=== PATIENT | male | born 1975 | race Caucasian/White ===

== ENCOUNTER 2018-11-10 11:26 | Inpatient (IN) | payer OTHER, MEDICAID ==
[~2018-11-10] VITALS: Ht 177.8 cm; Wt 90.7 kg
[2018-11-10] VITALS (18 sets, daily range): BP systolic 93–133
[2018-11-10] MEDS ORDERED: LEVOFLOXACIN 500 MG/D5W 100 ML IV ONE (11:45)
[2018-11-10] MEDS ORDERED: ALBUTEROL SULFATE 0.083% 2.5 MG/3 ML VIAL.NEB INH ONE ×3 (11:45→14:00)
[2018-11-10 12:30] LABS: BASOPHILS # (AUTO) 0.1 K/uL (0.0-0.2); BASOPHILS % (AUTO) 1.6 % (0.0-2.0); EOSINOPHILS % (AUTO) 0.2 % (0.0-4.0); HEMOGLOBIN 14.5 g/dL (14.0-18.0); LYMPHOCYTES # (AUTO) 1.5 K/uL (1.0-5.5); LYMPHOCYTES % (AUTO) 18.4 % (20.5-51.5); MEAN CORPUSCULAR HEMOGLOBIN 32 pg (27-31); MEAN CORPUSCULAR HGB CONC 35 % (32-36); MEAN CORPUSCULAR VOLUME 93 fL (79.0-98.0); MONOCYTES # (AUTO) 0.6 K/uL (0.0-1.0); MONOCYTES % (AUTO) 7.7 % (1.7-9.3); NEUTROPHILS # (AUTO) 6.1 K/uL (1.8-7.7); NEUTROPHILS % (AUTO) 72.1 % (40.0-70.0); PLATELET COUNT (AUTO) 175 K/uL (130-430); RED BLOOD CELL COUNT(AUTO) 4.53 MIL/uL (4.2-6.2); RED CELL DISTRIBUTION WIDTH 13.5 % (9.0-15.0); WHITE BLOOD COUNT (AUTO) 8.3 K/uL (4.8-10.8)
[2018-11-10] MEDS ORDERED: ALBUTEROL SULFATE 0.083% 2.5 MG/3 ML VIAL.NEB INH SCH (13:45)
[2018-11-10] MEDS ORDERED: IPRATROPIUM BROM 0.5 MG/2.5 ML VIAL.NEB (ATROVENT) INH PRN ×2 (13:45→16:00)
[2018-11-10] MEDS ORDERED: SODIUM CL 3% FOR INHALATION 15 ML VIAL.NEB INH ONE (13:45)
[2018-11-10] MEDS ORDERED: IPRATROPIUM BROM 0.5 MG/2.5 ML VIAL.NEB (ATROVENT) INH ONE ×2 (13:45→14:00)
[2018-11-10] MEDS ORDERED: IPRATROPIUM BROM 0.5 MG/2.5 ML VIAL.NEB (ATROVENT) INH SCH (13:45)
[2018-11-10] MEDS ORDERED: ALBUTEROL SULFATE 0.083% 2.5 MG/3 ML VIAL.NEB INH PRN ×2 (13:45→16:00)
[2018-11-10 14:22] LABS: ALBUMIN 3.1 g/dL (3.4-4.8); CALCIUM 8.6 mg/dL (8.4-11.0); CREATININE 0.58 mg/dL (0.55-1.30); TOTAL BILIRUBIN 0.8 mg/dL (0.0-1.0)
[2018-11-10] MEDS ORDERED: LORazepam 2 MG/ML VIAL (FOR ER USE) ONE ×2 (14:22→15:01)
[2018-11-10 14:45] LABS: INR 1.1 (0.80-1.20); PROTHROMBIN TIME 10.8 SECS (9.5-12.5)
[2018-11-10] MEDS ORDERED: IPRA4AER INH (14:59)
[2018-11-10] MEDS ORDERED: [UNRECOGNIZED DRUG - CODE] GT (14:59)
[2018-11-10] MEDS ORDERED: PRO40 GT (14:59)
[2018-11-10] MEDS ORDERED: DEPL250/5 GT (14:59)
[2018-11-10] MEDS ORDERED: FER300L GT (14:59)
[2018-11-10] MEDS ORDERED: GUAI100S14 GT (14:59)
[2018-11-10] MEDS ORDERED: LACT10SO7 GT (14:59)
[2018-11-10] MEDS ORDERED: NYSTATIN SUSPENSION (14:59)
[2018-11-10] MEDS ORDERED: APIX5TAB4 GT (14:59)
[2018-11-10] MEDS ORDERED: FAMO-132 GT (14:59)
[2018-11-10] MEDS ORDERED: MUC20RT INH (14:59)
[2018-11-10] MEDS ORDERED: BISA10SU61 RC (14:59)
[2018-11-10] MEDS ORDERED: LEVE250T2 GT (14:59)
[2018-11-10] MEDS ORDERED: CARB100T GT (14:59)
[2018-11-10] MEDS ORDERED: POLY17PO4 GT (14:59)
[2018-11-10] MEDS ORDERED: ACETAMINOPHEN 650 MG/20.3 ML UDC PO ONE (15:00)
[2018-11-10] MEDS ORDERED: LORazepam 2 MG/ML VIAL (FOR ER USE) IVP ONE ×2 (15:00)
[2018-11-10] MEDS ORDERED: ACETAMINOPHEN 500 MG TABLET ONE (15:08)
[2018-11-10] MEDS ORDERED: LORazepam 2 MG/ML VIAL ONE (15:25)
[2018-11-10 15:29] LABS: BILIRUBIN,URINE NEGATIVE (NEGATIVE); BLOOD, URINE 1+ (NEGATIVE); CLARITY/URINE CLEAR (CLEAR); COLOR,URINE YELLOW (YELLOW); GLUCOSE,URINE NEGATIVE (NEGATIVE); KETONES,URINE NEGATIVE (NEGATIVE); LEUKOCYTE ESTERASE ,URINE NEGATIVE (NEGATIVE); NITRITE, URINE NEGATIVE (NEGATIVE); PH,URINE 6.5 (5.0-8.0); PROTEIN URINE NEGATIVE (NEGATIVE)
[2018-11-10 15:34] LABS: BACTERIA,URINE FEW /HPF (None Seen); RBC,URINE 0-3 /HPF (0-3); WBC,URINE 0-3 /HPF (0-3)
[2018-11-10] MEDS ORDERED: MIDAZOLAM HCL 5 MG/5 ML VIAL ONE (15:34)
[2018-11-10 15:35] LABS: URINE AMORPHOUS URATE 1+ /HPF (None Seen)
[2018-11-10] MEDS ORDERED: PROPOFOL DRIP 100 ML IV ONE (15:35)
[2018-11-10] MEDS ORDERED: LORazepam 2 MG/ML VIAL IVP PRN (16:00)
[2018-11-10] MEDS ORDERED: MORPHINE 4 MG/ML INJ. SYRINGE IVP PRN (16:00)
[2018-11-10] MEDS: LORazepam 2 MG/ML VIAL IVP PRN (16:15)
[2018-11-10] MEDS ORDERED: COMMUNICATION ORDER XX ONE (16:30)
[2018-11-10 16:35] LABS: CARBAMAZEPINE (TEGRETOL) 5 ug/mL (4-12); VALPROIC ACID 16 ug/mL (50-100)
[2018-11-10 16:38] LABS: INR 1.1 (0.80-1.20)
[2018-11-10] MEDS ORDERED: ETOMIDATE 20 MG/ 10 ML VIAL (AMIDATE) IVP ONE (17:10)
[2018-11-10] MEDS: PIPERACILLIN/TAZO 3.375/DEX-IS 50 ML IV SCH ×2 (18:42→23:01)
[2018-11-10] MEDS: NACL 0.9% 1,000 ML IV SCH (18:42)
[2018-11-10] MEDS: ALBUTEROL SULFATE 0.083% 2.5 MG/3 ML VIAL.NEB INH SCH (20:19)
[2018-11-10] MEDS: IPRATROPIUM BROM 0.5 MG/2.5 ML VIAL.NEB (ATROVENT) INH SCH (20:19)
[2018-11-10] MEDS: VALPROIC ACID ORAL SYRUP 250 MG/5 ML UDC GT SCH (20:30)
[2018-11-10] MEDS: levETIRAcetam 500 MG TABLET GT SCH (20:30)
[2018-11-10] MEDS: PROPOFOL DRIP 100 ML IV PRN (20:36)
[2018-11-10] MEDS ORDERED: levETIRAcetam 500 MG TABLET GT SCH (21:00)
[2018-11-11] VITALS (34 sets, daily range): BP systolic 87–114
[2018-11-11] MEDS: NACL 0.9% 1,000 ML IV SCH ×3 (00:52→22:34)
[2018-11-11] MEDS: IPRATROPIUM BROM 0.5 MG/2.5 ML VIAL.NEB (ATROVENT) INH SCH ×3 (01:19→19:56)
[2018-11-11] MEDS: ALBUTEROL SULFATE 0.083% 2.5 MG/3 ML VIAL.NEB INH SCH ×3 (01:20→19:57)
[2018-11-11] MEDS: PROPOFOL DRIP 100 ML IV PRN ×3 (02:52→17:04)
[2018-11-11] MEDS: PIPERACILLIN/TAZO 3.375/DEX-IS 50 ML IV SCH ×4 (05:08→23:28)
[2018-11-11 06:27] LABS: ALBUMIN 2.5 g/dL (3.4-4.8); CALCIUM 8.4 mg/dL (8.4-11.0); CREATININE 0.43 mg/dL (0.55-1.30); POTASSIUM 3.1 mmol/L (3.5-5.1); TOTAL BILIRUBIN 1.2 mg/dL (0.0-1.0)
[2018-11-11 07:04] LABS: BASOPHILS % (AUTO) 0.1 % (0.0-2.0); EOSINOPHILS % (AUTO) 0.3 % (0.0-4.0); HEMATOCRIT 39.9 % (36-54); HEMOGLOBIN 13.5 g/dL (14.0-18.0); LYMPHOCYTES # (AUTO) 1.3 K/uL (1.0-5.5); LYMPHOCYTES % (AUTO) 14.2 % (20.5-51.5); MEAN CORPUSCULAR HEMOGLOBIN 32 pg (27-31); MEAN CORPUSCULAR HGB CONC 34 % (32-36); MEAN CORPUSCULAR VOLUME 94 fL (79.0-98.0); MONOCYTES # (AUTO) 0.9 K/uL (0.0-1.0); MONOCYTES % (AUTO) 9.5 % (1.7-9.3); NEUTROPHILS # (AUTO) 7.1 K/uL (1.8-7.7); NEUTROPHILS % (AUTO) 75.9 % (40.0-70.0); PLATELET COUNT (AUTO) 173 K/uL (130-430); RED BLOOD CELL COUNT(AUTO) 4.22 MIL/uL (4.2-6.2); RED CELL DISTRIBUTION WIDTH 13.4 % (9.0-15.0); WHITE BLOOD COUNT (AUTO) 9.3 K/uL (4.8-10.8)
[2018-11-11] MEDS: LORazepam 2 MG/ML VIAL IVP PRN ×3 (08:11→17:04)
[2018-11-11] MEDS: PANTOPRAZOLE SODIUM 40 MG TAB GT SCH (09:19)
[2018-11-11] MEDS: levETIRAcetam 500 MG TABLET GT SCH ×2 (09:21→20:54)
[2018-11-11] MEDS: VALPROIC ACID ORAL SYRUP 250 MG/5 ML UDC GT SCH ×2 (09:24→20:53)
[2018-11-11] MEDS ORDERED: POTASSIUM CHLORIDE 20 MEQ/PKT PACKET GT ONE (11:00)
[2018-11-11] MEDS ORDERED: NACL 0.9% 1,000 ML IV ONE (11:45)
[2018-11-11] MEDS ORDERED: NOREPINEPHRINE 4 MG/4 ML VIAL IV ONE (12:40)
[2018-11-11] MEDS: NOREPINEPHRINE BITARTRATE 4 MG in NS 246 ML IV PRN ×2 (12:43→23:37)
[2018-11-11] MEDS: APIXABAN 2.5 MG TABLET PO SCH (20:55)
[2018-11-12] VITALS (31 sets, daily range): BP systolic 95–128
[2018-11-12] MEDS: PROPOFOL DRIP 100 ML IV PRN ×2 (00:54→08:37)
[2018-11-12] MEDS: ALBUTEROL SULFATE 0.083% 2.5 MG/3 ML VIAL.NEB INH SCH ×4 (02:30→19:45)
[2018-11-12] MEDS: IPRATROPIUM BROM 0.5 MG/2.5 ML VIAL.NEB (ATROVENT) INH SCH ×4 (02:30→19:44)
[2018-11-12] MEDS: PIPERACILLIN/TAZO 3.375/DEX-IS 50 ML IV SCH ×3 (05:24→18:16)
[2018-11-12 06:58] LABS: CALCIUM 8.4 mg/dL (8.4-11.0); CREATININE 0.39 mg/dL (0.55-1.30); POTASSIUM 3.3 mmol/L (3.5-5.1)
[2018-11-12 07:05] LABS: ALBUMIN 2.2 g/dL (3.4-4.8); TOTAL BILIRUBIN 0.8 mg/dL (0.0-1.0)
[2018-11-12 07:40] LABS: EOSINOPHILS % (AUTO) 1.2 % (0.0-4.0); HEMOGLOBIN 12.6 g/dL (14.0-18.0); LYMPHOCYTES % (AUTO) 22.3 % (20.5-51.5); MEAN CORPUSCULAR HEMOGLOBIN 31 pg (27-31); MEAN CORPUSCULAR HGB CONC 32 % (32-36); MEAN CORPUSCULAR VOLUME 96 fL (79.0-98.0); MONOCYTES % (AUTO) 8.8 % (1.7-9.3); NEUTROPHILS % (AUTO) 67.4 % (40.0-70.0); PLATELET COUNT (AUTO) 211 K/uL (130-430); RED BLOOD CELL COUNT(AUTO) 4.05 MIL/uL (4.2-6.2); RED CELL DISTRIBUTION WIDTH 13.1 % (9.0-15.0)
[2018-11-12 07:41] LABS: BASOPHILS % (AUTO) 0.3 % (0.0-2.0); EOSINOPHILS # (AUTO) 0.1 K/uL (0.0-0.4); LYMPHOCYTES # (AUTO) 1.6 K/uL (1.0-5.5); MONOCYTES # (AUTO) 0.6 K/uL (0.0-1.0); NEUTROPHILS # (AUTO) 4.7 K/uL (1.8-7.7)
[2018-11-12] MEDS: PANTOPRAZOLE SODIUM 40 MG TAB GT SCH (08:24)
[2018-11-12] MEDS: levETIRAcetam 500 MG TABLET GT SCH ×2 (08:24→21:00)
[2018-11-12] MEDS: VALPROIC ACID ORAL SYRUP 250 MG/5 ML UDC GT SCH ×2 (08:26→20:59)
[2018-11-12] MEDS: APIXABAN 2.5 MG TABLET PO SCH ×2 (08:27→21:01)
[2018-11-12] MEDS: NACL 0.9% 1,000 ML IV SCH (08:39)
[2018-11-12] MEDS ORDERED: NOREPINEPHRINE 4 MG/4 ML VIAL IV ONE (08:44)
[2018-11-12] MEDS: NOREPINEPHRINE BITARTRATE 4 MG in NS 246 ML IV PRN (08:50)
[2018-11-12] MEDS: VANCOMYCIN HCL 1,000 MG in NS 250 ML IV SCH ×2 (08:58→16:06)
[2018-11-12] MEDS ORDERED: VANCOMYCIN HCL 1 GM/NS PREMIX 250 ML IV SCH (09:00)
[2018-11-12] MEDS ORDERED: POTASSIUM CHLORIDE 20 MEQ/PKT PACKET PO ONE (11:00)
[2018-11-12] MEDS: 0.45% NACL 1,000 ML IV SCH (11:47)
[2018-11-13] VITALS (29 sets, daily range): BP systolic 86–140
[2018-11-13] MEDS: PIPERACILLIN/TAZO 3.375/DEX-IS 50 ML IV SCH ×4 (00:05→17:10)
[2018-11-13] MEDS: VANCOMYCIN HCL 1,000 MG in NS 250 ML IV SCH ×2 (00:47→08:14)
[2018-11-13] MEDS: IPRATROPIUM BROM 0.5 MG/2.5 ML VIAL.NEB (ATROVENT) INH SCH ×4 (00:51→19:30)
[2018-11-13] MEDS: ALBUTEROL SULFATE 0.083% 2.5 MG/3 ML VIAL.NEB INH SCH ×4 (00:52→19:30)
[2018-11-13] MEDS: 0.45% NACL 1,000 ML IV SCH ×2 (05:35→20:20)
[2018-11-13] MEDS: NOREPINEPHRINE BITARTRATE 4 MG in NS 246 ML IV PRN (05:36)
[2018-11-13 07:11] LABS: CALCIUM 8.3 mg/dL (8.4-11.0); CREATININE 0.35 mg/dL (0.55-1.30); POTASSIUM 3.5 mmol/L (3.5-5.1)
[2018-11-13 07:18] LABS: ALBUMIN 2.1 g/dL (3.4-4.8); TOTAL BILIRUBIN 0.5 mg/dL (0.0-1.0)
[2018-11-13 08:10] LABS: BASOPHILS % (AUTO) 0.1 % (0.0-2.0); EOSINOPHILS # (AUTO) 0.1 K/uL (0.0-0.4); EOSINOPHILS % (AUTO) 2.6 % (0.0-4.0); HEMATOCRIT 35.3 % (36-54); HEMOGLOBIN 11.9 g/dL (14.0-18.0); LYMPHOCYTES # (AUTO) 1.3 K/uL (1.0-5.5); LYMPHOCYTES % (AUTO) 27.7 % (20.5-51.5); MEAN CORPUSCULAR HEMOGLOBIN 33 pg (27-31); MEAN CORPUSCULAR HGB CONC 34 % (32-36); MEAN CORPUSCULAR VOLUME 96 fL (79.0-98.0); MONOCYTES # (AUTO) 0.4 K/uL (0.0-1.0); MONOCYTES % (AUTO) 9.1 % (1.7-9.3); NEUTROPHILS # (AUTO) 2.9 K/uL (1.8-7.7); NEUTROPHILS % (AUTO) 60.5 % (40.0-70.0); PLATELET COUNT (AUTO) 159 K/uL (130-430); RED BLOOD CELL COUNT(AUTO) 3.68 MIL/uL (4.2-6.2); RED CELL DISTRIBUTION WIDTH 12.9 % (9.0-15.0); WHITE BLOOD COUNT (AUTO) 4.7 K/uL (4.8-10.8)
[2018-11-13] MEDS: PANTOPRAZOLE SODIUM 40 MG TAB GT SCH (08:14)
[2018-11-13] MEDS: APIXABAN 2.5 MG TABLET PO SCH ×2 (08:15→20:25)
[2018-11-13] MEDS: levETIRAcetam 500 MG TABLET GT SCH ×2 (08:16→20:25)
[2018-11-13] MEDS: VALPROIC ACID ORAL SYRUP 250 MG/5 ML UDC GT SCH ×2 (08:16→20:24)
[2018-11-13] MEDS: VANCOMYCIN HCL 1,500 MG in NS 250 ML IV SCH (17:02)
[2018-11-14] VITALS (34 sets, daily range): BP systolic 94–138
[2018-11-14] MEDS: PIPERACILLIN/TAZO 3.375/DEX-IS 50 ML IV SCH ×5 (00:42→23:29)
[2018-11-14] MEDS: IPRATROPIUM BROM 0.5 MG/2.5 ML VIAL.NEB (ATROVENT) INH SCH ×4 (01:15→19:37)
[2018-11-14] MEDS: ALBUTEROL SULFATE 0.083% 2.5 MG/3 ML VIAL.NEB INH SCH ×4 (01:15→19:37)
[2018-11-14] MEDS: VANCOMYCIN HCL 1,500 MG in NS 250 ML IV SCH ×3 (01:19→16:37)
[2018-11-14 07:05] LABS: BASOPHILS % (AUTO) 0.1 % (0.0-2.0); EOSINOPHILS # (AUTO) 0.2 K/uL (0.0-0.4); EOSINOPHILS % (AUTO) 3.2 % (0.0-4.0); HEMATOCRIT 33.4 % (36-54); HEMOGLOBIN 11.3 g/dL (14.0-18.0); LYMPHOCYTES # (AUTO) 1.4 K/uL (1.0-5.5); MEAN CORPUSCULAR HEMOGLOBIN 33 pg (27-31); MEAN CORPUSCULAR HGB CONC 34 % (32-36); MEAN CORPUSCULAR VOLUME 97 fL (79.0-98.0); MONOCYTES # (AUTO) 0.5 K/uL (0.0-1.0); MONOCYTES % (AUTO) 10.3 % (1.7-9.3); NEUTROPHILS # (AUTO) 2.9 K/uL (1.8-7.7); NEUTROPHILS % (AUTO) 57.4 % (40.0-70.0); PLATELET COUNT (AUTO) 135 K/uL (130-430); RED BLOOD CELL COUNT(AUTO) 3.46 MIL/uL (4.2-6.2); RED CELL DISTRIBUTION WIDTH 13.3 % (9.0-15.0)
[2018-11-14 07:08] LABS: ALBUMIN 2.1 g/dL (3.4-4.8); CALCIUM 8.2 mg/dL (8.4-11.0); CREATININE 0.34 mg/dL (0.55-1.30); POTASSIUM 3.5 mmol/L (3.5-5.1); TOTAL BILIRUBIN 0.5 mg/dL (0.0-1.0)
[2018-11-14] MEDS: APIXABAN 2.5 MG TABLET PO SCH ×2 (08:12→20:25)
[2018-11-14] MEDS: PANTOPRAZOLE SODIUM 40 MG TAB GT SCH (08:13)
[2018-11-14] MEDS: levETIRAcetam 500 MG TABLET GT SCH ×2 (08:13→20:24)
[2018-11-14] MEDS: VALPROIC ACID ORAL SYRUP 250 MG/5 ML UDC GT SCH ×2 (08:14→20:23)
[2018-11-14] MEDS ORDERED: FUROSEMIDE 20 MG/2 ML VIAL IVP ONE (10:30)
[2018-11-14] MEDS: 0.45% NACL 1,000 ML IV SCH (19:58)
[2018-11-14] MEDS: MIDODRINE HCL 5 MG TABLET (PROAMATINE) GT SCH (20:24)
[2018-11-15] VITALS (36 sets, daily range): BP systolic 91–117
[2018-11-15] MEDS: VANCOMYCIN HCL 1,500 MG in NS 250 ML IV SCH ×3 (00:16→18:00)
[2018-11-15] MEDS: IPRATROPIUM BROM 0.5 MG/2.5 ML VIAL.NEB (ATROVENT) INH SCH ×4 (00:49→19:40)
[2018-11-15] MEDS: ALBUTEROL SULFATE 0.083% 2.5 MG/3 ML VIAL.NEB INH SCH ×4 (00:49→19:41)
[2018-11-15] MEDS ORDERED: NOREPINEPHRINE 4 MG/4 ML VIAL IV ONE (05:04)
[2018-11-15] MEDS: NOREPINEPHRINE BITARTRATE 4 MG in NS 246 ML IV PRN (05:09)
[2018-11-15] MEDS: PIPERACILLIN/TAZO 3.375/DEX-IS 50 ML IV SCH ×4 (05:21→23:45)
[2018-11-15 06:47] LABS: CALCIUM 8.6 mg/dL (8.4-11.0); CREATININE 0.28 mg/dL (0.55-1.30); POTASSIUM 3.5 mmol/L (3.5-5.1)
[2018-11-15] MEDS: PANTOPRAZOLE SODIUM 40 MG TAB GT SCH (09:19)
[2018-11-15] MEDS: APIXABAN 2.5 MG TABLET PO SCH ×2 (09:20→21:19)
[2018-11-15] MEDS: levETIRAcetam 500 MG TABLET GT SCH ×2 (09:20→21:18)
[2018-11-15] MEDS: VALPROIC ACID ORAL SYRUP 250 MG/5 ML UDC GT SCH ×2 (09:21→21:21)
[2018-11-15] MEDS: MIDODRINE HCL 5 MG TABLET (PROAMATINE) GT SCH ×2 (09:21→21:24)
[2018-11-15] MEDS: 0.45% NACL 1,000 ML IV SCH (23:47)
[2018-11-16] VITALS (33 sets, daily range): BP systolic 85–133
[2018-11-16] MEDS: VANCOMYCIN HCL 1,500 MG in NS 250 ML IV SCH ×3 (00:58→17:09)
[2018-11-16] MEDS: IPRATROPIUM BROM 0.5 MG/2.5 ML VIAL.NEB (ATROVENT) INH SCH ×4 (01:07→19:58)
[2018-11-16] MEDS: ALBUTEROL SULFATE 0.083% 2.5 MG/3 ML VIAL.NEB INH SCH ×4 (01:07→19:58)
[2018-11-16] MEDS: PIPERACILLIN/TAZO 3.375/DEX-IS 50 ML IV SCH ×3 (05:59→17:07)
[2018-11-16 06:24] LABS: CALCIUM 8.6 mg/dL (8.4-11.0); CHLORIDE 104 mmol/L (98-107); CREATININE 0.27 mg/dL (0.55-1.30); GLUCOSE 95 mg/dL (70-99); SODIUM SERUM 138 mmol/L (136-145); UREA NITROGEN, BLOOD 11 mg/dL (8-21)
[2018-11-16 06:27] LABS: GFR AFRICAN AMERICAN 471 mL/min (>90)
[2018-11-16 06:28] LABS: ANION GAP < 3 (5-15)
[2018-11-16 06:57] LABS: BASOPHILS % (AUTO) 0.2 % (0.0-2.0); EOSINOPHILS # (AUTO) 0.2 K/uL (0.0-0.4); EOSINOPHILS % (AUTO) 4.3 % (0.0-4.0); HEMOGLOBIN 11.8 g/dL (14.0-18.0); LYMPHOCYTES # (AUTO) 1.5 K/uL (1.0-5.5); LYMPHOCYTES % (AUTO) 33.2 % (20.5-51.5); MEAN CORPUSCULAR HEMOGLOBIN 34 pg (27-31); MEAN CORPUSCULAR HGB CONC 35 % (32-36); MEAN CORPUSCULAR VOLUME 97 fL (79.0-98.0); MONOCYTES # (AUTO) 0.5 K/uL (0.0-1.0); MONOCYTES % (AUTO) 11.5 % (1.7-9.3); NEUTROPHILS # (AUTO) 2.4 K/uL (1.8-7.7); NEUTROPHILS % (AUTO) 50.8 % (40.0-70.0); PLATELET COUNT (AUTO) 148 K/uL (130-430); RED CELL DISTRIBUTION WIDTH 13.2 % (9.0-15.0); WHITE BLOOD COUNT (AUTO) 4.6 K/uL (4.8-10.8)
[2018-11-16] MEDS: levETIRAcetam 500 MG TABLET GT SCH ×2 (08:15→22:36)
[2018-11-16] MEDS: PANTOPRAZOLE SODIUM 40 MG TAB GT SCH (08:16)
[2018-11-16] MEDS: APIXABAN 2.5 MG TABLET PO SCH ×2 (08:17→22:37)
[2018-11-16] MEDS: MIDODRINE HCL 5 MG TABLET (PROAMATINE) GT SCH ×2 (08:18→22:35)
[2018-11-16] MEDS: VALPROIC ACID ORAL SYRUP 250 MG/5 ML UDC GT SCH ×2 (08:20→22:35)
[2018-11-17] VITALS (28 sets, daily range): BP systolic 97–120
[2018-11-17] MEDS: PIPERACILLIN/TAZO 3.375/DEX-IS 50 ML IV SCH ×3 (00:20→13:06)
[2018-11-17] MEDS: 0.45% NACL 1,000 ML IV SCH (00:51)
[2018-11-17] MEDS: VANCOMYCIN HCL 1,500 MG in NS 250 ML IV SCH ×3 (01:12→16:40)
[2018-11-17] MEDS: ALBUTEROL SULFATE 0.083% 2.5 MG/3 ML VIAL.NEB INH SCH ×4 (01:29→19:51)
[2018-11-17] MEDS: IPRATROPIUM BROM 0.5 MG/2.5 ML VIAL.NEB (ATROVENT) INH SCH ×4 (01:30→19:51)
[2018-11-17 06:35] LABS: CALCIUM 8.8 mg/dL (8.4-11.0); CREATININE 0.38 mg/dL (0.55-1.30); POTASSIUM 4.1 mmol/L (3.5-5.1)
[2018-11-17 06:39] LABS: BASOPHILS % (AUTO) 0.3 % (0.0-2.0); EOSINOPHILS # (AUTO) 0.3 K/uL (0.0-0.4); EOSINOPHILS % (AUTO) 4.3 % (0.0-4.0); HEMATOCRIT 34.1 % (36-54); HEMOGLOBIN 11.6 g/dL (14.0-18.0); LYMPHOCYTES # (AUTO) 1.9 K/uL (1.0-5.5); LYMPHOCYTES % (AUTO) 30.7 % (20.5-51.5); MEAN CORPUSCULAR HEMOGLOBIN 33 pg (27-31); MEAN CORPUSCULAR HGB CONC 34 % (32-36); MEAN CORPUSCULAR VOLUME 96 fL (79.0-98.0); MONOCYTES # (AUTO) 0.7 K/uL (0.0-1.0); NEUTROPHILS # (AUTO) 3.2 K/uL (1.8-7.7); NEUTROPHILS % (AUTO) 53.7 % (40.0-70.0); PLATELET COUNT (AUTO) 180 K/uL (130-430); RED BLOOD CELL COUNT(AUTO) 3.54 MIL/uL (4.2-6.2); RED CELL DISTRIBUTION WIDTH 13.1 % (9.0-15.0); WHITE BLOOD COUNT (AUTO) 6.1 K/uL (4.8-10.8)
[2018-11-17] MEDS: PANTOPRAZOLE SODIUM 40 MG TAB GT SCH (09:27)
[2018-11-17] MEDS: APIXABAN 2.5 MG TABLET PO SCH ×2 (09:27→21:41)
[2018-11-17] MEDS: levETIRAcetam 500 MG TABLET GT SCH ×2 (09:28→21:40)
[2018-11-17] MEDS: VALPROIC ACID ORAL SYRUP 250 MG/5 ML UDC GT SCH ×2 (09:28→21:40)
[2018-11-17] MEDS: MIDODRINE HCL 5 MG TABLET (PROAMATINE) GT SCH ×2 (09:29→21:40)
[2018-11-18] VITALS (23 sets, daily range): BP systolic 99–122
[2018-11-18] MEDS: IPRATROPIUM BROM 0.5 MG/2.5 ML VIAL.NEB (ATROVENT) INH SCH ×4 (01:20→20:16)
[2018-11-18] MEDS: ALBUTEROL SULFATE 0.083% 2.5 MG/3 ML VIAL.NEB INH SCH ×4 (01:20→20:16)
[2018-11-18] MEDS: VANCOMYCIN HCL 1,500 MG in NS 250 ML IV SCH ×3 (01:54→17:03)
[2018-11-18 06:07] LABS: CALCIUM 8.6 mg/dL (8.4-11.0); CREATININE 0.32 mg/dL (0.55-1.30); POTASSIUM 4.2 mmol/L (3.5-5.1)
[2018-11-18] MEDS: VALPROIC ACID ORAL SYRUP 250 MG/5 ML UDC GT SCH ×2 (08:38→21:24)
[2018-11-18] MEDS: MIDODRINE HCL 5 MG TABLET (PROAMATINE) GT SCH ×2 (08:38→21:23)
[2018-11-18] MEDS: LevETIRAcetam 500 MG/5 ML UDC ORAL LIQUID GT SCH ×2 (08:41→21:25)
[2018-11-18] MEDS: PANTOPRAZOLE SODIUM 40 MG TAB GT SCH (08:43)
[2018-11-18] MEDS: APIXABAN 2.5 MG TABLET PO SCH ×2 (08:44→21:00)
[2018-11-19] MEDS: VANCOMYCIN HCL 1,500 MG in NS 250 ML IV SCH ×3 (00:09→17:02)
[2018-11-19] MEDS: ALBUTEROL SULFATE 0.083% 2.5 MG/3 ML VIAL.NEB INH SCH ×4 (01:44→20:12)
[2018-11-19] MEDS: IPRATROPIUM BROM 0.5 MG/2.5 ML VIAL.NEB (ATROVENT) INH SCH ×4 (01:44→20:12)
[2018-11-19 08:00] VITALS: BP_SYST 113
[2018-11-19] MEDS: MIDODRINE HCL 5 MG TABLET (PROAMATINE) GT SCH ×2 (09:47→20:30)
[2018-11-19] MEDS: PANTOPRAZOLE SODIUM 40 MG TAB GT SCH (09:47)
[2018-11-19] MEDS: APIXABAN 2.5 MG TABLET PO SCH ×2 (09:47→20:39)
[2018-11-19] MEDS: VALPROIC ACID ORAL SYRUP 250 MG/5 ML UDC GT SCH ×2 (09:48→20:29)
[2018-11-19] MEDS: LevETIRAcetam 500 MG/5 ML UDC ORAL LIQUID GT SCH ×2 (09:49→20:30)
[2018-11-19 12:42] VITALS: BP_SYST 120
[2018-11-19 14:11] VITALS: BP_SYST 120
[2018-11-19 16:38] VITALS: BP_SYST 107
[2018-11-19 20:00] VITALS: BP_SYST 121
[2018-11-20 00:36] VITALS: BP_SYST 91
[2018-11-20] MEDS: VANCOMYCIN HCL 1,500 MG in NS 250 ML IV SCH (01:13)
[2018-11-20] MEDS: IPRATROPIUM BROM 0.5 MG/2.5 ML VIAL.NEB (ATROVENT) INH SCH ×4 (01:19→19:37)
[2018-11-20] MEDS: ALBUTEROL SULFATE 0.083% 2.5 MG/3 ML VIAL.NEB INH SCH ×4 (01:20→19:37)
[2018-11-20 07:17] LABS: EOSINOPHILS # (AUTO) 0.2 K/uL (0.0-0.4); EOSINOPHILS % (AUTO) 4.1 % (0.0-4.0); MEAN CORPUSCULAR HEMOGLOBIN 32 pg (27-31); MEAN CORPUSCULAR HGB CONC 33 % (32-36)
[2018-11-20 07:30] LABS: CALCIUM 8.7 mg/dL (8.4-11.0); CREATININE 0.33 mg/dL (0.55-1.30); POTASSIUM 3.9 mmol/L (3.5-5.1)
[2018-11-20 07:35] LABS: HEMATOCRIT 40.7 % (36-54); HEMOGLOBIN 13.4 g/dL (14.0-18.0); MEAN CORPUSCULAR VOLUME 97 fL (79.0-98.0); RED BLOOD CELL COUNT(AUTO) 4.21 MIL/uL (4.2-6.2); WHITE BLOOD COUNT (AUTO) 5.3 K/uL (4.8-10.8)
[2018-11-20 07:36] LABS: BASOPHILS % (AUTO) 0.3 % (0.0-2.0); LYMPHOCYTES # (AUTO) 2.1 K/uL (1.0-5.5); LYMPHOCYTES % (AUTO) 39.2 % (20.5-51.5); MONOCYTES # (AUTO) 0.6 K/uL (0.0-1.0); MONOCYTES % (AUTO) 11.4 % (1.7-9.3); NEUTROPHILS # (AUTO) 2.4 K/uL (1.8-7.7); PLATELET COUNT (AUTO) 294 K/uL (130-430); RED CELL DISTRIBUTION WIDTH 13.5 % (9.0-15.0)
[2018-11-20 07:42] LABS: ALBUMIN 2.5 g/dL (3.4-4.8); TOTAL BILIRUBIN 0.4 mg/dL (0.0-1.0)
[2018-11-20 08:11] VITALS: BP_SYST 105
[2018-11-20] MEDS: PANTOPRAZOLE SODIUM 40 MG TAB GT SCH (09:22)
[2018-11-20] MEDS: APIXABAN 2.5 MG TABLET PO SCH ×2 (09:22→21:54)
[2018-11-20] MEDS: LevETIRAcetam 500 MG/5 ML UDC ORAL LIQUID GT SCH ×2 (09:23→21:57)
[2018-11-20] MEDS: MIDODRINE HCL 5 MG TABLET (PROAMATINE) GT SCH ×2 (09:23→21:53)
[2018-11-20] MEDS: VALPROIC ACID ORAL SYRUP 250 MG/5 ML UDC GT SCH ×2 (09:25→21:58)
[2018-11-20 12:43] VITALS: BP_SYST 121
[2018-11-20 16:40] VITALS: BP_SYST 106
[2018-11-20 19:50] VITALS: BP_SYST 139
[2018-11-21] MEDS: IPRATROPIUM BROM 0.5 MG/2.5 ML VIAL.NEB (ATROVENT) INH SCH ×3 (00:50→14:21)
[2018-11-21] MEDS: ALBUTEROL SULFATE 0.083% 2.5 MG/3 ML VIAL.NEB INH SCH ×3 (00:50→14:21)
[2018-11-21 01:28] VITALS: BP_SYST 90
[2018-11-21 08:55] VITALS: BP_SYST 126
[2018-11-21] MEDS: VALPROIC ACID ORAL SYRUP 250 MG/5 ML UDC GT SCH (08:58)
[2018-11-21] MEDS: PANTOPRAZOLE SODIUM 40 MG TAB GT SCH (08:59)
[2018-11-21] MEDS: LevETIRAcetam 500 MG/5 ML UDC ORAL LIQUID GT SCH (08:59)
[2018-11-21] MEDS: MIDODRINE HCL 5 MG TABLET (PROAMATINE) GT SCH (08:59)
[2018-11-21] MEDS: APIXABAN 2.5 MG TABLET PO SCH (09:04)
[2018-11-21 12:09] VITALS: BP_SYST 112
[2018-11-21 13:58] VITALS: BP_SYST 128
[2018-11-21 16:36] VITALS: BP_SYST 128
== END 2018-11-21 17:50 | DRG 870 ==
LOC: SED 11:26 → SIC 13:36 → STU 11-18 20:33
PROVIDERS: ADMIT Internal Medicine Hospice and Palliative Medicine; ATTEND Internal Medicine Hospice and Palliative Medicine
PROC: 5A1955Z Respiratory Ventilation, Greater than 96 Consecutive Hours (ICD-10-PCS; principal; 2018-11-10)
PROC: 0BH17EZ Insertion of Endotracheal Airway into Trachea, Via Natural or Artificial Opening (ICD-10-PCS; 2018-11-10)
PROC: 02HV33Z Insertion of Infusion Device into Superior Vena Cava, Percutaneous Approach (ICD-10-PCS; 2018-11-10)
PROC: B548ZZA Ultrasonography of Superior Vena Cava, Guidance (ICD-10-PCS; 2018-11-10)
DX: A41.9 Sepsis, unspecified organism (principal); R65.21 Severe sepsis with septic shock; J69.0 Pneumonitis due to inhalation of food and vomit; J96.01 Acute respiratory failure with hypoxia; G93.40 Encephalopathy, unspecified; E78.5 Hyperlipidemia, unspecified; K21.9 Gastro-esophageal reflux disease without esophagitis; G40.901 Epilepsy, unspecified, not intractable, with status epilepticus; Z93.1 Gastrostomy status; J45.909 Unspecified asthma, uncomplicated; R31.0 Gross hematuria; Z86.718 Personal history of other venous thrombosis and embolism; Z93.0 Tracheostomy status; Z98.2 Presence of cerebrospinal fluid drainage device; Z86.73 Personal history of transient ischemic attack (TIA), and cerebral infarction without residual deficits; Z88.8 Allergy status to other drugs, medicaments and biological substances; Z79.899 Other long term (current) drug therapy
CPT/HCPCS: 36415; 36600; 70450-TC; 71045; 80048; 80053; 80156-TC; 80164-TC; 80202-TC; 81000-TC; 82533; 82803-TC; 83605; 83880; 84484; 85025; 85610-TC; 85730-TC; 86710; 87040-TC; 87070-TC; 87081; 87205-TC; 93005; 93306; 94002; 94003; 94640; 94760; 95816; 96365; 96375; 97110-GP; 99285; C1751; C1769; G0378; J1940; J1956; J2060; J2250; J2543; J2704; J3370; J3490; J7030; J7050; J7060; J7613

== ENCOUNTER 2018-12-16 20:29 | Inpatient (IN) | payer OTHER, MEDICAID ==
[~2018-12-16] VITALS: Ht 175.3 cm; Wt 106.1 kg
[~2018-12-16 20:29] MED LIST: APIX5TAB4 GT; BISA10SU61 RC; CARB100T GT; DEPL250/5 GT; FAMO-132 GT; FER300L GT; GUAI100S14 GT; IPRA4AER INH; LACT10SO7 GT; LEVE250T2 GT; MUC20RT INH; NYSTATIN SUSPENSION; POLY17PO4 GT; PRO40 GT; [UNRECOGNIZED DRUG - CODE] GT
[2018-12-16] MEDS ORDERED: NACL 0.9% 1,000 ML IV ONE ×3 (20:40→22:15)
[2018-12-16] MEDS ORDERED: LORazepam 2 MG/ML VIAL (FOR ER USE) IVP ONE (20:45)
[2018-12-16 21:22] LABS: BASOPHILS % (AUTO) 0.4 % (0.0-2.0); EOSINOPHILS # (AUTO) 0.1 K/uL (0.0-0.4); EOSINOPHILS % (AUTO) 1.6 % (0.0-4.0); HEMATOCRIT 49.9 % (36-54); HEMOGLOBIN 16.2 g/dL (14.0-18.0); LYMPHOCYTES # (AUTO) 2.6 K/uL (1.0-5.5); LYMPHOCYTES % (AUTO) 30.7 % (20.5-51.5); MEAN CORPUSCULAR HEMOGLOBIN 33 pg (27-31); MEAN CORPUSCULAR HGB CONC 33 % (32-36); MEAN CORPUSCULAR VOLUME 100 fL (79.0-98.0); MONOCYTES # (AUTO) 0.6 K/uL (0.0-1.0); MONOCYTES % (AUTO) 7.2 % (1.7-9.3); NEUTROPHILS # (AUTO) 5.1 K/uL (1.8-7.7); NEUTROPHILS % (AUTO) 60.1 % (40.0-70.0); PLATELET COUNT (AUTO) 133 K/uL (130-430); RED BLOOD CELL COUNT(AUTO) 4.97 MIL/uL (4.2-6.2); RED CELL DISTRIBUTION WIDTH 14.5 % (9.0-15.0); WHITE BLOOD COUNT (AUTO) 8.4 K/uL (4.8-10.8)
[2018-12-16] MEDS ORDERED: DILTIAZEM HCL 25 MG/5 ML VIAL IVP ONE (21:30)
[2018-12-16 21:31] LABS: INR 1.1 (0.80-1.20); PROTHROMBIN TIME 11.5 SECS (9.5-12.5)
[2018-12-16 21:32] LABS: ANION GAP 15 (5-15); CALCIUM 8.2 mg/dL (8.4-11.0); CHLORIDE 101 mmol/L (98-107); CREATININE 1.03 mg/dL (0.55-1.30); GLUCOSE 195 mg/dL (70-99); POTASSIUM 5.1 mmol/L (3.5-5.1); SODIUM SERUM 138 mmol/L (136-145); UREA NITROGEN, BLOOD 24 mg/dL (8-21)
[2018-12-16 21:33] LABS: GFR AFRICAN AMERICAN 100 mL/min (>90)
[2018-12-16] MEDS ORDERED: CLOPIDOGREL BISULFATE 75 MG TABLET PO ONE (21:45)
[2018-12-16] MEDS ORDERED: ASPIRIN 81 MG TAB.CHEW PO ONE (21:45)
[2018-12-16 21:48] LABS: ACETAMINOPHEN 33 ug/mL (1-30)
[2018-12-16 22:02] LABS: ALANINE AMINOTRANSFERASE 22 U/L (12-78); ALBUMIN 2.5 g/dL (3.4-4.8); ASPARTATE AMINOTRANSFERASE 23 U/L (10-37); LIPASE 1951 U/L (73-393); TOTAL BILIRUBIN 0.6 mg/dL (0.0-1.0)
[2018-12-16 22:03] LABS: ALCOHOL, BLOOD < 3 mg/dL (<10)
[2018-12-16] MEDS ORDERED: AMIODARONE HCL 900 MG in D5W 482 ML IV ONE ×2 (22:30→23:45)
[2018-12-16] MEDS ORDERED: AMIODARONE HCL 150 MG in D5W 97 ML IV ONE (22:30)
[2018-12-16] MEDS ORDERED: AMIODARONE HCL 150 MG/3ML VIAL ONE (22:37)
[2018-12-16] MEDS ORDERED: AMIODARONE HCL 900 MG/18 ML VIAL IV ONE (22:38)
[2018-12-16] MEDS ORDERED: levETIRAcetam 1,000 MG in NS 100 ML IV ONE (22:45)
[2018-12-16] MEDS ORDERED: ALBUTEROL SULFATE 0.083% 2.5 MG/3 ML VIAL.NEB INH PRN (23:45)
[2018-12-16] MEDS ORDERED: MORPHINE 4 MG/ML INJ. SYRINGE IVP PRN ×2 (23:45)
[2018-12-16] MEDS ORDERED: ONDANSETRON HCL 4 MG/2 ML VIAL IVP PRN (23:45)
[2018-12-17] VITALS (26 sets, daily range): BP systolic 74–110
[2018-12-17] MEDS ORDERED: [UNRECOGNIZED DRUG - CODE] GT (00:13)
[2018-12-17] MEDS ORDERED: ZINC220T GT (00:13)
[2018-12-17] MEDS ORDERED: ACET325T53 GT ×2 (00:13)
[2018-12-17] MEDS ORDERED: DOCU-144 GT (00:13)
[2018-12-17] MEDS ORDERED: MULT-1184 GT (00:13)
[2018-12-17] MEDS ORDERED: ALBU2.5V7 INH (00:13)
[2018-12-17] MEDS ORDERED: FLEETMO RC (00:13)
[2018-12-17] MEDS ORDERED: POLY119P15 GT (00:13)
[2018-12-17] MEDS ORDERED: ASCO500T20 PO (00:13)
[2018-12-17] MEDS ORDERED: ACETAMINOPHEN 500 MG TABLET ONE ×2 (00:30→01:35)
[2018-12-17 00:57] LABS: BILIRUBIN,URINE 1+ (NEGATIVE); BLOOD, URINE 3+ (NEGATIVE); CLARITY/URINE CLEAR (CLEAR); COLOR,URINE YELLOW (YELLOW); GLUCOSE,URINE NEGATIVE (NEGATIVE); KETONES,URINE TRACE (NEGATIVE); LEUKOCYTE ESTERASE ,URINE NEGATIVE (NEGATIVE); NITRITE, URINE NEGATIVE (NEGATIVE); PH,URINE 5.5 (5.0-8.0); PROTEIN URINE 2+ (NEGATIVE)
[2018-12-17 01:03] LABS: BARBITURATE, URINE NEGATIVE (NEG <=200); BENZODIAZEPINE, URINE POSITIVE (NEG <=150); CANNABINOID, URINE NEGATIVE (NEG <=50); COCAINE, URINE NEGATIVE (NEG <=150); METHAMPHETAMINES SCREEN,URINE NEGATIVE (NEG <=500); OPIATE, URINE NEGATIVE (NEG <=100); PHENCYCLIDINE SCREEN,URINE NEGATIVE (NEG <=25); UR TRICYCLIC ANTIDEPRESSANTS NEGATIVE (NEG <=300); URINE AMPHETAMINE NEGATIVE (NEG <=500); URINE METHADONE NEGATIVE (NEG <=200); URINE OXYCODONE SCREEN NEGATIVE (NEG <=100); URINE PROPOXYPHENE SCREEN NEGATIVE (NEG <=300)
[2018-12-17 01:05] LABS: RBC,URINE 20-50 /HPF (0-3)
[2018-12-17 01:06] LABS: BACTERIA,URINE MODERATE /HPF (None Seen)
[2018-12-17] MEDS ORDERED: PIPERACILLIN/TAZOBACTAM 3.375 GM/VIAL (ZOSYN) IV ONE (01:27)
[2018-12-17] MEDS ORDERED: NS 500 ML IV SCH (01:50)
[2018-12-17] MEDS ORDERED: LORazepam 2 MG/ML VIAL (FOR ER USE) ONE (01:59)
[2018-12-17] MEDS ORDERED: ETOMIDATE 20 MG/ 10 ML VIAL (AMIDATE) IVP ONE (02:00)
[2018-12-17] MEDS ORDERED: SUCCINYLCHOLINE CHLORIDE 20 MG/ML(QUELICIN) IVP ONE (02:00)
[2018-12-17] MEDS ORDERED: LORazepam 2 MG/ML VIAL (FOR ER USE) IVP ONE (02:00)
[2018-12-17] MEDS ORDERED: PROPOFOL DRIP 100 ML IV ONE ×2 (02:15→02:26)
[2018-12-17] MEDS ORDERED: NACL 0.9% 1,000 ML IV ONE (02:15)
[2018-12-17] MEDS ORDERED: NOREPINEPHRINE BITARTRATE 4 MG in NS 246 ML IV ONE (04:00)
[2018-12-17] MEDS ORDERED: NOREPINEPHRINE 4 MG/4 ML VIAL IV ONE ×6 (04:22→23:20)
[2018-12-17] MEDS: PIPERACILLIN/TAZO 3.375/DEX-IS 50 ML IV SCH ×5 (06:00→23:27)
[2018-12-17] MEDS ORDERED: VANCOMYCIN HCL 1,750 MG in NS 500 ML IV ONE (06:30)
[2018-12-17] MEDS ORDERED: NOREPINEPHRINE BITARTRATE 4 MG in NS 246 ML IV PRN (06:45)
[2018-12-17] MEDS ORDERED: VANCOMYCIN HCL 2,000 MG in NS 500 ML IV ONE (09:00)
[2018-12-17] MEDS ORDERED: levETIRAcetam 1,000 MG IV BAG 100 ML IV SCH (09:00)
[2018-12-17 11:57] LABS: WHITE BLOOD COUNT (AUTO) 14.4 K/uL (4.8-10.8)
[2018-12-17 11:58] LABS: HEMOGLOBIN 15.1 g/dL (14.0-18.0); MEAN CORPUSCULAR HEMOGLOBIN 32 pg (27-31); MEAN CORPUSCULAR HGB CONC 33 % (32-36); MEAN CORPUSCULAR VOLUME 98 fL (79.0-98.0); PLATELET COUNT (AUTO) 141 K/uL (130-430); RED CELL DISTRIBUTION WIDTH 14.8 % (9.0-15.0)
[2018-12-17 12:00] LABS: CALCIUM 7.8 mg/dL (8.4-11.0); CREATININE 0.99 mg/dL (0.55-1.30); POTASSIUM 3.4 mmol/L (3.5-5.1)
[2018-12-17 12:09] LABS: ALBUMIN 2.2 g/dL (3.4-4.8); TOTAL BILIRUBIN 1.1 mg/dL (0.0-1.0)
[2018-12-17] MEDS ORDERED: COMMUNICATION ORDER XX ONE (12:15)
[2018-12-17] MEDS ORDERED: VALPROATE SODIUM IV ONE (13:00)
[2018-12-17] MEDS ORDERED: levETIRAcetam 1,500 MG in NS 100 ML IV ONE (13:00)
[2018-12-17] MEDS ORDERED: D5W IV ONE (13:00)
[2018-12-17 13:25] LABS: ATYPICAL LYMPHOCYTES % 0 % (0-0); BAND % (MANUAL) 22 % (0-6); BASOPHILS % (MANUAL) 0 % (0-2); EOSINOPHILS % (MANUAL) 2 % (0-7); LYMPHOCYTES % (MANUAL) 19 % (20-46); MONOCYTES % (MANUAL) 9 % (0-11)
[2018-12-17] MEDS: LORazepam 2 MG/ML VIAL IVP PRN (13:26)
[2018-12-17] MEDS: NACL 0.9% 1,000 ML IV SCH ×4 (13:27→23:34)
[2018-12-17] MEDS ORDERED: *LOVENOX 1MG/KG Q12H/PHARMACY XX ONE (13:45)
[2018-12-17] MEDS ORDERED: ASPIRIN 325 MG TABLET GT ONE (14:00)
[2018-12-17] MEDS ORDERED: ENOXAPARIN SODIUM 120 MG/0.8 ML SYRINGE SUBCUT SCH (14:30)
[2018-12-17] MEDS ORDERED: ENOXAPARIN SODIUM 60 MG/0.6 ML SYRINGE ONE (15:38)
[2018-12-17] MEDS: VANCOMYCIN HCL 1,000 MG in NS 250 ML IV SCH (17:00)
[2018-12-17] MEDS: PROPOFOL DRIP 100 ML IV PRN ×2 (17:32→22:45)
[2018-12-17] MEDS: NOREPINEPHRINE BITARTRATE 4 MG in D5W 246 ML IV PRN ×3 (19:25→23:15)
[2018-12-17] MEDS: VALPROATE SODIUM 1,000 MG in NS 100 ML IV SCH (19:33)
[2018-12-17] MEDS: ACETAMINOPHEN 650 MG/20.3 ML UDC GT PRN (19:46)
[2018-12-17] MEDS: levETIRAcetam 1,500 MG in NS 100 ML IV SCH (20:50)
[2018-12-17] MEDS: ENOXAPARIN SODIUM 120 MG/0.8 ML SYRINGE SUBCUT SCH (23:40)
[2018-12-18] VITALS (32 sets, daily range): BP systolic 92–124
[2018-12-18] MEDS: VALPROATE SODIUM 1,000 MG in NS 100 ML IV SCH ×5 (00:12→23:45)
[2018-12-18] MEDS: NOREPINEPHRINE BITARTRATE 4 MG in D5W 246 ML IV PRN ×5 (01:20→10:34)
[2018-12-18] MEDS: VANCOMYCIN HCL 1,000 MG in NS 250 ML IV SCH ×3 (01:21→16:56)
[2018-12-18] MEDS ORDERED: NOREPINEPHRINE 4 MG/4 ML VIAL IV ONE ×5 (01:22→09:20)
[2018-12-18] MEDS: PROPOFOL DRIP 100 ML IV PRN ×2 (02:28→06:43)
[2018-12-18] MEDS: PIPERACILLIN/TAZO 3.375/DEX-IS 50 ML IV SCH ×4 (05:31→23:45)
[2018-12-18 06:54] LABS: WHITE BLOOD COUNT (AUTO) 17.1 K/uL (4.8-10.8)
[2018-12-18 06:55] LABS: HEMATOCRIT 41.4 % (36-54); MEAN CORPUSCULAR HEMOGLOBIN 33 pg (27-31); MEAN CORPUSCULAR VOLUME 96 fL (79.0-98.0)
[2018-12-18 06:56] LABS: BASOPHILS % (AUTO) 0.2 % (0.0-2.0); EOSINOPHILS # (AUTO) 1.2 K/uL (0.0-0.4); EOSINOPHILS % (AUTO) 7.1 % (0.0-4.0); LYMPHOCYTES # (AUTO) 2.8 K/uL (1.0-5.5); LYMPHOCYTES % (AUTO) 16.6 % (20.5-51.5); MEAN CORPUSCULAR HGB CONC 34 % (32-36); MONOCYTES # (AUTO) 0.4 K/uL (0.0-1.0); MONOCYTES % (AUTO) 2.6 % (1.7-9.3); NEUTROPHILS # (AUTO) 12.6 K/uL (1.8-7.7); NEUTROPHILS % (AUTO) 73.5 % (40.0-70.0); PLATELET COUNT (AUTO) 114 K/uL (130-430); RED CELL DISTRIBUTION WIDTH 14.3 % (9.0-15.0)
[2018-12-18] MEDS: levETIRAcetam 1,500 MG in NS 100 ML IV SCH ×2 (08:19→21:10)
[2018-12-18] MEDS: ASPIRIN 325 MG TABLET GT SCH (08:20)
[2018-12-18] MEDS: NACL 0.9% 1,000 ML IV SCH ×2 (08:32→13:57)
[2018-12-18 08:33] LABS: POTASSIUM 2.8 mmol/L (3.5-5.1)
[2018-12-18 08:34] LABS: ALBUMIN 1.9 g/dL (3.4-4.8); CREATININE 0.82 mg/dL (0.55-1.30); TOTAL BILIRUBIN 0.8 mg/dL (0.0-1.0)
[2018-12-18] MEDS ORDERED: KCL 40 mEq in 100 mL (PREMIX) 100 ML IV ONE (08:45)
[2018-12-18] MEDS ORDERED: COMMUNICATION ORDER XX ONE (09:45)
[2018-12-18 10:21] LABS: CARBAMAZEPINE (TEGRETOL) 4 ug/mL (4-12)
[2018-12-18 10:22] LABS: VALPROIC ACID 97 ug/mL (50-100)
[2018-12-18] MEDS: NOREPINEPHRINE BITARTRATE 8 MG in D5W 242 ML IV PRN ×4 (11:21→22:27)
[2018-12-18] MEDS: ENOXAPARIN SODIUM 120 MG/0.8 ML SYRINGE SUBCUT SCH ×2 (12:13→23:46)
[2018-12-18] MEDS: LORazepam 2 MG/ML VIAL IVP PRN (15:51)
[2018-12-19] VITALS (27 sets, daily range): BP systolic 97–143
[2018-12-19] MEDS: VANCOMYCIN HCL 1,000 MG in NS 250 ML IV SCH ×3 (01:12→18:15)
[2018-12-19] MEDS: NACL 0.9% 1,000 ML IV SCH (03:06)
[2018-12-19] MEDS: NOREPINEPHRINE BITARTRATE 8 MG in D5W 242 ML IV PRN ×3 (03:07→19:46)
[2018-12-19] MEDS: PIPERACILLIN/TAZO 3.375/DEX-IS 50 ML IV SCH ×4 (05:19→23:26)
[2018-12-19] MEDS: VALPROATE SODIUM 1,000 MG in NS 100 ML IV SCH ×3 (05:55→16:58)
[2018-12-19 07:09] LABS: CARBAMAZEPINE (TEGRETOL) 6 ug/mL (4-12); VALPROIC ACID 89 ug/mL (50-100)
[2018-12-19] MEDS: ASPIRIN 325 MG TABLET GT SCH (08:03)
[2018-12-19] MEDS ORDERED: NOREPINEPHRINE 4 MG/4 ML VIAL IV ONE (09:44)
[2018-12-19] MEDS ORDERED: HYDROCORTISONE SOD SUCC 100 MG/2 ML VIAL IVP ONE (11:00)
[2018-12-19] MEDS: ENOXAPARIN SODIUM 120 MG/0.8 ML SYRINGE SUBCUT SCH ×2 (12:34→23:29)
[2018-12-19 13:30] LABS: HEMATOCRIT 36.4 % (36-54); HEMOGLOBIN 12.4 g/dL (14.0-18.0); LYMPHOCYTES % (AUTO) 9.7 % (20.5-51.5); MEAN CORPUSCULAR HEMOGLOBIN 33 pg (27-31); MEAN CORPUSCULAR HGB CONC 34 % (32-36); MEAN CORPUSCULAR VOLUME 96 fL (79.0-98.0); MONOCYTES % (AUTO) 2.3 % (1.7-9.3); NEUTROPHILS % (AUTO) 63.9 % (40.0-70.0); PLATELET COUNT (AUTO) 73 K/uL (130-430); RED CELL DISTRIBUTION WIDTH 14.1 % (9.0-15.0); WHITE BLOOD COUNT (AUTO) 11.6 K/uL (4.8-10.8)
[2018-12-19] MEDS: LORazepam 2 MG/ML VIAL IVP PRN ×2 (13:30→15:42)
[2018-12-19 13:31] LABS: BASOPHILS % (AUTO) 0.7 % (0.0-2.0); EOSINOPHILS % (AUTO) 23.4 % (0.0-4.0)
[2018-12-19 13:36] LABS: EOSINOPHILS # (AUTO) 2.7 K/uL (0.0-0.4); LYMPHOCYTES # (AUTO) 1.1 K/uL (1.0-5.5); MONOCYTES # (AUTO) 0.3 K/uL (0.0-1.0); NEUTROPHILS # (AUTO) 7.4 K/uL (1.8-7.7)
[2018-12-19 14:00] LABS: CALCIUM 7.2 mg/dL (8.4-11.0); POTASSIUM 3.2 mmol/L (3.5-5.1)
[2018-12-19 14:01] LABS: CREATININE 0.4 mg/dL (0.55-1.30)
[2018-12-19] MEDS: LEVETIRACETAM IV SCH (20:27)
[2018-12-19] MEDS: NS IV SCH (20:27)
[2018-12-19] MEDS: HYDROCORTISONE SOD SUCC 100 MG/2 ML VIAL IVP SCH (21:35)
[2018-12-20] VITALS (31 sets, daily range): BP systolic 107–138
[2018-12-20] MEDS: VALPROATE SODIUM 1,000 MG in NS 100 ML IV SCH ×2 (00:05→06:10)
[2018-12-20] MEDS: VANCOMYCIN HCL 1,000 MG in NS 250 ML IV SCH ×3 (01:17→17:36)
[2018-12-20] MEDS: NOREPINEPHRINE BITARTRATE 8 MG in D5W 242 ML IV PRN ×2 (03:21→22:18)
[2018-12-20] MEDS: HYDROCORTISONE SOD SUCC 100 MG/2 ML VIAL IVP SCH ×3 (05:29→21:23)
[2018-12-20] MEDS: PIPERACILLIN/TAZO 3.375/DEX-IS 50 ML IV SCH ×3 (05:30→17:36)
[2018-12-20] MEDS: NACL 0.9% 1,000 ML IV SCH (05:30)
[2018-12-20 07:19] LABS: HEMATOCRIT 33.6 % (36-54); HEMOGLOBIN 11.7 g/dL (14.0-18.0); MEAN CORPUSCULAR HEMOGLOBIN 34 pg (27-31); MEAN CORPUSCULAR HGB CONC 35 % (32-36); MEAN CORPUSCULAR VOLUME 96 fL (79.0-98.0); RED BLOOD CELL COUNT(AUTO) 3.49 MIL/uL (4.2-6.2); WHITE BLOOD COUNT (AUTO) 5.4 K/uL (4.8-10.8)
[2018-12-20 07:20] LABS: PLATELET COUNT (AUTO) 75 K/uL (130-430); RED CELL DISTRIBUTION WIDTH 14.1 % (9.0-15.0)
[2018-12-20 07:40] LABS: BASOPHILS % (AUTO) 0.2 % (0.0-2.0); EOSINOPHILS % (AUTO) 0.4 % (0.0-4.0); LYMPHOCYTES # (AUTO) 0.5 K/uL (1.0-5.5); LYMPHOCYTES % (AUTO) 9.9 % (20.5-51.5); MONOCYTES # (AUTO) 0.2 K/uL (0.0-1.0); MONOCYTES % (AUTO) 3.2 % (1.7-9.3); NEUTROPHILS # (AUTO) 4.7 K/uL (1.8-7.7); NEUTROPHILS % (AUTO) 86.3 % (40.0-70.0)
[2018-12-20 08:04] LABS: ALBUMIN 1.6 g/dL (3.4-4.8); BILIRUBIN,DIRECT 0.7 mg/dL (0.0-0.3); CALCIUM 7.3 mg/dL (8.4-11.0); CREATININE 0.48 mg/dL (0.55-1.30); TOTAL BILIRUBIN 1.3 mg/dL (0.0-1.0)
[2018-12-20 08:23] LABS: POTASSIUM 2.8 mmol/L (3.5-5.1)
[2018-12-20] MEDS: ASPIRIN 325 MG TABLET GT SCH (08:32)
[2018-12-20] MEDS: NS IV SCH ×2 (08:32→20:28)
[2018-12-20] MEDS: LEVETIRACETAM IV SCH ×2 (08:32→20:28)
[2018-12-20] MEDS ORDERED: VALPROATE SODIUM 1,000 MG in NS 100 ML IV ONE (08:45)
[2018-12-20] MEDS ORDERED: POTASSIUM CHLORIDE 20 MEQ/PKT PACKET GT ONE (09:15)
[2018-12-20 12:07] LABS: HEPATITIS B CORE AB, TOTAL Negative (Negative); HEPATITIS B SURFACE AG Negative (Negative); HEPATITIS C VIRUS AB <0.1 s/co ratio (0.0-0.9)
[2018-12-20] MEDS ORDERED: VALPROATE SODIUM IV SCH (14:00)
[2018-12-20] MEDS ORDERED: NS IV SCH (14:00)
[2018-12-20] MEDS: LORazepam 2 MG/ML VIAL IVP PRN (14:45)
[2018-12-20] MEDS ORDERED: POTASSIUM CHLORIDE 20 MEQ/PKT PACKET PO ONE (17:15)
[2018-12-20] MEDS: ENOXAPARIN SODIUM 120 MG/0.8 ML SYRINGE SUBCUT SCH ×2 (17:35→23:48)
[2018-12-20] MEDS: 0.45% NACL 1,000 ML IV SCH (17:40)
[2018-12-20] MEDS: VALPROIC ACID ORAL SYRUP 250 MG/5 ML UDC GT SCH (21:24)
[2018-12-21] VITALS (34 sets, daily range): BP systolic 91–120
[2018-12-21] MEDS: PIPERACILLIN/TAZO 3.375/DEX-IS 50 ML IV SCH ×3 (00:04→12:55)
[2018-12-21] MEDS: VANCOMYCIN HCL 1,000 MG in NS 250 ML IV SCH ×2 (01:08→10:38)
[2018-12-21] MEDS: VALPROIC ACID ORAL SYRUP 250 MG/5 ML UDC GT SCH ×2 (06:05→14:25)
[2018-12-21] MEDS: HYDROCORTISONE SOD SUCC 100 MG/2 ML VIAL IVP SCH ×3 (06:06→20:26)
[2018-12-21 06:53] LABS: ALBUMIN 1.5 g/dL (3.4-4.8); CALCIUM 7.6 mg/dL (8.4-11.0); CREATININE 0.48 mg/dL (0.55-1.30); POTASSIUM 3.4 mmol/L (3.5-5.1); TOTAL BILIRUBIN 1.1 mg/dL (0.0-1.0)
[2018-12-21 08:03] LABS: HEMATOCRIT 30.8 % (36-54); HEMOGLOBIN 10.3 g/dL (14.0-18.0); RED BLOOD CELL COUNT(AUTO) 3.14 MIL/uL (4.2-6.2); WHITE BLOOD COUNT (AUTO) 3.7 K/uL (4.8-10.8)
[2018-12-21 08:04] LABS: MEAN CORPUSCULAR HEMOGLOBIN 33 pg (27-31); MEAN CORPUSCULAR HGB CONC 34 % (32-36); MEAN CORPUSCULAR VOLUME 98 fL (79.0-98.0); NEUTROPHILS % (AUTO) 76.6 % (40.0-70.0); PLATELET COUNT (AUTO) 52 K/uL (130-430); RED CELL DISTRIBUTION WIDTH 14.4 % (9.0-15.0)
[2018-12-21 08:05] LABS: BASOPHILS % (AUTO) 0.3 % (0.0-2.0); EOSINOPHILS % (AUTO) 0.1 % (0.0-4.0); LYMPHOCYTES # (AUTO) 0.7 K/uL (1.0-5.5); LYMPHOCYTES % (AUTO) 18.7 % (20.5-51.5); MONOCYTES # (AUTO) 0.2 K/uL (0.0-1.0); MONOCYTES % (AUTO) 4.3 % (1.7-9.3); NEUTROPHILS # (AUTO) 2.9 K/uL (1.8-7.7)
[2018-12-21] MEDS: ASPIRIN 325 MG TABLET GT SCH (09:16)
[2018-12-21] MEDS: NS IV SCH ×3 (09:17→21:34)
[2018-12-21] MEDS: LEVETIRACETAM IV SCH ×2 (09:17→21:34)
[2018-12-21 09:53] LABS: CARBAMAZEPINE (TEGRETOL) 12 ug/mL (4-12); VALPROIC ACID 75 ug/mL (50-100)
[2018-12-21] MEDS ORDERED: FUROSEMIDE 20 MG/2 ML VIAL IVP ONE (15:30)
[2018-12-21] MEDS ORDERED: POTASSIUM CHLORIDE 20 MEQ/PKT PACKET PO ONE (15:30)
[2018-12-21] MEDS: cefTRIAXone 1 GM in D5W 50 ML IV SCH (16:55)
[2018-12-21] MEDS: 0.45% NACL 1,000 ML IV SCH (16:56)
[2018-12-21] MEDS: VIMPAT IV SCH (20:26)
[2018-12-22] VITALS (34 sets, daily range): BP systolic 89–130
[2018-12-22 07:20] LABS: CREATININE 0.34 mg/dL (0.55-1.30); POTASSIUM 3.3 mmol/L (3.5-5.1)
[2018-12-22 07:24] LABS: HEMATOCRIT 31.8 % (36-54); HEMOGLOBIN 10.5 g/dL (14.0-18.0); MEAN CORPUSCULAR HEMOGLOBIN 32 pg (27-31); MEAN CORPUSCULAR HGB CONC 33 % (32-36); MEAN CORPUSCULAR VOLUME 98 fL (79.0-98.0); RED BLOOD CELL COUNT(AUTO) 3.25 MIL/uL (4.2-6.2); RED CELL DISTRIBUTION WIDTH 14.4 % (9.0-15.0); WHITE BLOOD COUNT (AUTO) 3.1 K/uL (4.8-10.8)
[2018-12-22 07:34] LABS: PLATELET COUNT (AUTO) 43 K/uL (130-430)
[2018-12-22] MEDS ORDERED: VALPROIC ACID ORAL SYRUP 250 MG/5 ML UDC GT ONE (08:45)
[2018-12-22 09:10] LABS: BASOPHILS % (AUTO) 0.1 % (0.0-2.0); EOSINOPHILS % (AUTO) 0.2 % (0.0-4.0); LYMPHOCYTES # (AUTO) 0.7 K/uL (1.0-5.5); LYMPHOCYTES % (AUTO) 23.5 % (20.5-51.5); MONOCYTES # (AUTO) 0.2 K/uL (0.0-1.0); MONOCYTES % (AUTO) 5.8 % (1.7-9.3); NEUTROPHILS # (AUTO) 2.2 K/uL (1.8-7.7); NEUTROPHILS % (AUTO) 70.4 % (40.0-70.0)
[2018-12-22] MEDS: NS IV SCH ×4 (09:21→21:22)
[2018-12-22] MEDS: LEVETIRACETAM IV SCH ×2 (09:21→21:22)
[2018-12-22] MEDS: VIMPAT IV SCH ×2 (09:21→21:22)
[2018-12-22] MEDS: HYDROCORTISONE SOD SUCC 100 MG/2 ML VIAL IVP SCH ×2 (09:25→21:19)
[2018-12-22] MEDS: ACETAMINOPHEN 650 MG/20.3 ML UDC GT PRN (09:26)
[2018-12-22] MEDS: ASPIRIN 325 MG TABLET GT SCH (09:26)
[2018-12-22] MEDS: VALPROIC ACID ORAL SYRUP 250 MG/5 ML UDC GT SCH ×2 (14:40→21:21)
[2018-12-22] MEDS: cefTRIAXone 1 GM in D5W 50 ML IV SCH (18:32)
[2018-12-22] MEDS: 0.45% NACL 1,000 ML IV SCH (18:33)
[2018-12-23] VITALS (33 sets, daily range): BP systolic 86–129
[2018-12-23] MEDS: LORazepam 2 MG/ML VIAL IVP PRN ×2 (05:14→18:21)
[2018-12-23] MEDS: VALPROIC ACID ORAL SYRUP 250 MG/5 ML UDC GT SCH ×3 (05:15→22:17)
[2018-12-23 05:19] LABS: CARBAMAZEPINE (TEGRETOL) 7 ug/mL (4-12); VALPROIC ACID 62 ug/mL (50-100)
[2018-12-23] MEDS: ASPIRIN 325 MG TABLET GT SCH (08:50)
[2018-12-23] MEDS: HYDROCORTISONE SOD SUCC 100 MG/2 ML VIAL IVP SCH ×3 (08:51→22:20)
[2018-12-23] MEDS: NS IV SCH ×4 (08:54→22:52)
[2018-12-23] MEDS: VIMPAT IV SCH ×2 (08:54→22:52)
[2018-12-23] MEDS: LEVETIRACETAM IV SCH ×2 (08:54→22:15)
[2018-12-23] MEDS ORDERED: NOREPINEPHRINE 4 MG/4 ML VIAL IV ONE (10:05)
[2018-12-23] MEDS ORDERED: NOREPINEPHRINE BITARTRATE 4 MG in NS 246 ML IV PRN (10:15)
[2018-12-23] MEDS ORDERED: NACL 0.9% 1,000 ML IV ONE (10:30)
[2018-12-23] MEDS: cefTRIAXone 1 GM in D5W 50 ML IV SCH (17:49)
[2018-12-23] MEDS: 0.45% NACL 1,000 ML IV SCH (17:49)
[2018-12-24] VITALS (30 sets, daily range): BP systolic 98–150
[2018-12-24 05:32] LABS: HEMOGLOBIN 11.1 g/dL (14.0-18.0); RED BLOOD CELL COUNT(AUTO) 3.45 MIL/uL (4.2-6.2); WHITE BLOOD COUNT (AUTO) 9.5 K/uL (4.8-10.8)
[2018-12-24 05:33] LABS: MEAN CORPUSCULAR HEMOGLOBIN 32 pg (27-31); MEAN CORPUSCULAR HGB CONC 33 % (32-36); MEAN CORPUSCULAR VOLUME 99 fL (79.0-98.0); PLATELET COUNT (AUTO) 99 K/uL (130-430); RED CELL DISTRIBUTION WIDTH 14.8 % (9.0-15.0)
[2018-12-24 05:36] LABS: CALCIUM 7.9 mg/dL (8.4-11.0); CREATININE 0.46 mg/dL (0.55-1.30); POTASSIUM 3.6 mmol/L (3.5-5.1)
[2018-12-24 05:43] LABS: ALBUMIN 1.8 g/dL (3.4-4.8); TOTAL BILIRUBIN 0.3 mg/dL (0.0-1.0)
[2018-12-24 05:59] LABS: ATYPICAL LYMPHOCYTES % 1 % (0-0); BAND % (MANUAL) 0 % (0-6); BASOPHILS % (MANUAL) 0 % (0-2); EOSINOPHILS % (MANUAL) 0 % (0-7); LYMPHOCYTES % (MANUAL) 17 % (20-46); METAMYELOCYTES % 0 % (0-0); MONOCYTES % (MANUAL) 7 % (0-11); MYELOCYTES % 3 % (0-0); PROMYELOCYTES % 1 % (0-0)
[2018-12-24] MEDS: HYDROCORTISONE SOD SUCC 100 MG/2 ML VIAL IVP SCH ×3 (06:07→22:05)
[2018-12-24] MEDS: VALPROIC ACID ORAL SYRUP 250 MG/5 ML UDC GT SCH ×3 (06:08→22:05)
[2018-12-24] MEDS: ASPIRIN 325 MG TABLET GT SCH (08:40)
[2018-12-24] MEDS: LEVETIRACETAM IV SCH ×2 (08:41→22:05)
[2018-12-24] MEDS: NS IV SCH ×4 (08:41→22:33)
[2018-12-24] MEDS: VIMPAT IV SCH ×2 (08:42→22:33)
[2018-12-24] MEDS: LORazepam 2 MG/ML VIAL IVP PRN ×2 (12:46→22:33)
[2018-12-24] MEDS: POTASSIUM CHLORIDE 20 MEQ/PKT PACKET PO SCH ×2 (12:46→23:49)
[2018-12-24] MEDS: FUROSEMIDE 20 MG/2 ML VIAL IVP SCH ×2 (12:47→23:49)
[2018-12-24] MEDS: cefTRIAXone 1 GM in D5W 50 ML IV SCH (17:44)
[2018-12-24] MEDS: 0.45% NACL 1,000 ML IV SCH (17:45)
[2018-12-25] VITALS (30 sets, daily range): BP systolic 90–141
[2018-12-25] MEDS: VALPROIC ACID ORAL SYRUP 250 MG/5 ML UDC GT SCH ×3 (05:26→21:41)
[2018-12-25] MEDS: HYDROCORTISONE SOD SUCC 100 MG/2 ML VIAL IVP SCH ×3 (05:26→21:41)
[2018-12-25 07:51] LABS: ALBUMIN 1.9 g/dL (3.4-4.8); CALCIUM 7.6 mg/dL (8.4-11.0); CREATININE 0.33 mg/dL (0.55-1.30); POTASSIUM 3.4 mmol/L (3.5-5.1); TOTAL BILIRUBIN 0.3 mg/dL (0.0-1.0)
[2018-12-25 08:26] LABS: HEMATOCRIT 32.2 % (36-54); HEMOGLOBIN 10.7 g/dL (14.0-18.0); MEAN CORPUSCULAR HEMOGLOBIN 33 pg (27-31); MEAN CORPUSCULAR HGB CONC 33 % (32-36); MEAN CORPUSCULAR VOLUME 99 fL (79.0-98.0); PLATELET COUNT (AUTO) 97 K/uL (130-430); RED BLOOD CELL COUNT(AUTO) 3.26 MIL/uL (4.2-6.2); RED CELL DISTRIBUTION WIDTH 14.6 % (9.0-15.0); WHITE BLOOD COUNT (AUTO) 7.4 K/uL (4.8-10.8)
[2018-12-25 08:27] LABS: BASOPHILS % (AUTO) 0.1 % (0.0-2.0); EOSINOPHILS # (AUTO) 0.2 K/uL (0.0-0.4); EOSINOPHILS % (AUTO) 2.5 % (0.0-4.0); LYMPHOCYTES # (AUTO) 1.1 K/uL (1.0-5.5); LYMPHOCYTES % (AUTO) 14.9 % (20.5-51.5); MONOCYTES # (AUTO) 0.5 K/uL (0.0-1.0); MONOCYTES % (AUTO) 6.1 % (1.7-9.3); NEUTROPHILS # (AUTO) 5.6 K/uL (1.8-7.7)
[2018-12-25] MEDS: ASPIRIN 325 MG TABLET GT SCH (09:06)
[2018-12-25] MEDS: NS IV SCH ×4 (09:07→20:56)
[2018-12-25] MEDS: LEVETIRACETAM IV SCH ×2 (09:07→20:27)
[2018-12-25] MEDS ORDERED: FUROSEMIDE 20 MG/2 ML VIAL IVP ONE (09:45)
[2018-12-25] MEDS ORDERED: POTASSIUM CHLORIDE 20 MEQ/PKT PACKET PO ONE (09:45)
[2018-12-25] MEDS: VIMPAT IV SCH ×2 (10:20→20:56)
[2018-12-25 10:53] LABS: NEUTROPHILS % (AUTO) 76.4 % (40.0-70.0)
[2018-12-25] MEDS: 0.45% NACL 1,000 ML IV SCH (16:37)
[2018-12-25] MEDS: cefTRIAXone 1 GM in D5W 50 ML IV SCH (16:38)
[2018-12-25] MEDS: LORazepam 2 MG/ML VIAL IVP PRN (20:28)
[2018-12-26] VITALS (34 sets, daily range): BP systolic 90–135
[2018-12-26] MEDS: HYDROCORTISONE SOD SUCC 100 MG/2 ML VIAL IVP SCH ×3 (05:54→22:05)
[2018-12-26] MEDS: VALPROIC ACID ORAL SYRUP 250 MG/5 ML UDC GT SCH ×3 (05:54→22:05)
[2018-12-26 06:21] LABS: ALANINE AMINOTRANSFERASE 102 U/L (12-78); ALBUMIN 1.8 g/dL (3.4-4.8); ASPARTATE AMINOTRANSFERASE 35 U/L (10-37); CALCIUM 7.7 mg/dL (8.4-11.0); CARBAMAZEPINE (TEGRETOL) 4 ug/mL (4-12); CREATININE 0.41 mg/dL (0.55-1.30); GLUCOSE 176 mg/dL (70-99); POTASSIUM 3.5 mmol/L (3.5-5.1); SODIUM SERUM 137 mmol/L (136-145); TOTAL BILIRUBIN 0.4 mg/dL (0.0-1.0); UREA NITROGEN, BLOOD 19 mg/dL (8-21); VALPROIC ACID 63 ug/mL (50-100)
[2018-12-26 06:25] LABS: HEMATOCRIT 31.7 % (36-54); HEMOGLOBIN 10.7 g/dL (14.0-18.0); MEAN CORPUSCULAR HEMOGLOBIN 34 pg (27-31); MEAN CORPUSCULAR HGB CONC 34 % (32-36); MEAN CORPUSCULAR VOLUME 100 fL (79.0-98.0); PLATELET COUNT (AUTO) 115 K/uL (130-430); RED BLOOD CELL COUNT(AUTO) 3.18 MIL/uL (4.2-6.2); RED CELL DISTRIBUTION WIDTH 14.6 % (9.0-15.0); WHITE BLOOD COUNT (AUTO) 7.5 K/uL (4.8-10.8)
[2018-12-26 06:27] LABS: CHLORIDE 104 mmol/L (98-107)
[2018-12-26 06:30] LABS: ANION GAP < 3 (5-15); GFR AFRICAN AMERICAN 291 mL/min (>90)
[2018-12-26 07:02] LABS: BAND % (MANUAL) 5 % (0-6); BASOPHILS % (MANUAL) 0 % (0-2); EOSINOPHILS % (MANUAL) 0 % (0-7); LYMPHOCYTES % (MANUAL) 29 % (20-46); MONOCYTES % (MANUAL) 11 % (0-11)
[2018-12-26 07:03] LABS: MYELOCYTES % 2 % (0-0)
[2018-12-26] MEDS: ASPIRIN 325 MG TABLET GT SCH (08:25)
[2018-12-26] MEDS: NS IV SCH ×4 (08:26→20:36)
[2018-12-26] MEDS: LEVETIRACETAM IV SCH ×2 (08:26→20:29)
[2018-12-26] MEDS: VIMPAT IV SCH ×2 (08:58→20:36)
[2018-12-26] MEDS: MINERAL OIL 30 ML UDC PO SCH ×3 (09:00→20:30)
[2018-12-26] MEDS ORDERED: POTASSIUM CHLORIDE 20 MEQ/PKT PACKET PO ONE (11:00)
[2018-12-26] MEDS ORDERED: FUROSEMIDE 20 MG/2 ML VIAL IVP ONE (11:00)
[2018-12-26] MEDS ORDERED: MORPHINE 4 MG/ML INJ. SYRINGE IVP PRN ×2 (11:15)
[2018-12-26] MEDS ORDERED: POTASSIUM CHLORIDE 20 MEQ/PKT PACKET GT ONE (11:30)
[2018-12-26] MEDS: 0.45% NACL 1,000 ML IV SCH (16:36)
[2018-12-26] MEDS: cefTRIAXone 1 GM in D5W 50 ML IV SCH (16:36)
[2018-12-26] MEDS: LORazepam 2 MG/ML VIAL IVP PRN (22:06)
[2018-12-27] VITALS (33 sets, daily range): BP systolic 101–155
[2018-12-27] MEDS: LORazepam 2 MG/ML VIAL IVP PRN ×2 (01:44→14:56)
[2018-12-27] MEDS: HYDROCORTISONE SOD SUCC 100 MG/2 ML VIAL IVP SCH ×3 (05:44→22:19)
[2018-12-27] MEDS: VALPROIC ACID ORAL SYRUP 250 MG/5 ML UDC GT SCH ×3 (05:45→21:52)
[2018-12-27 07:04] LABS: ALANINE AMINOTRANSFERASE 88 U/L (12-78); ALBUMIN 1.8 g/dL (3.4-4.8); ASPARTATE AMINOTRANSFERASE 40 U/L (10-37); CALCIUM 7.6 mg/dL (8.4-11.0); CHLORIDE 104 mmol/L (98-107); CREATININE 0.35 mg/dL (0.55-1.30); GLUCOSE 144 mg/dL (70-99); POTASSIUM 3.6 mmol/L (3.5-5.1); SODIUM SERUM 139 mmol/L (136-145); TOTAL BILIRUBIN 0.4 mg/dL (0.0-1.0); UREA NITROGEN, BLOOD 19 mg/dL (8-21)
[2018-12-27 07:24] LABS: ANION GAP < 3 (5-15); GFR AFRICAN AMERICAN 349 mL/min (>90)
[2018-12-27 07:42] LABS: HEMATOCRIT 32.1 % (36-54); HEMOGLOBIN 10.6 g/dL (14.0-18.0); RED BLOOD CELL COUNT(AUTO) 3.22 MIL/uL (4.2-6.2); WHITE BLOOD COUNT (AUTO) 5.7 K/uL (4.8-10.8)
[2018-12-27 07:43] LABS: BASOPHILS % (AUTO) 0.2 % (0.0-2.0); EOSINOPHILS % (AUTO) 0.4 % (0.0-4.0); LYMPHOCYTES # (AUTO) 1.3 K/uL (1.0-5.5); LYMPHOCYTES % (AUTO) 22.6 % (20.5-51.5); MEAN CORPUSCULAR HEMOGLOBIN 33 pg (27-31); MEAN CORPUSCULAR HGB CONC 33 % (32-36); MEAN CORPUSCULAR VOLUME 100 fL (79.0-98.0); MONOCYTES # (AUTO) 0.5 K/uL (0.0-1.0); MONOCYTES % (AUTO) 8.8 % (1.7-9.3); NEUTROPHILS # (AUTO) 3.9 K/uL (1.8-7.7); PLATELET COUNT (AUTO) 105 K/uL (130-430)
[2018-12-27] MEDS: LEVETIRACETAM IV SCH ×2 (08:22→21:54)
[2018-12-27] MEDS: NS IV SCH ×4 (08:22→21:54)
[2018-12-27] MEDS: MINERAL OIL 30 ML UDC PO SCH ×2 (08:23→21:52)
[2018-12-27] MEDS ORDERED: FUROSEMIDE 20 MG/2 ML VIAL IVP ONE (09:15)
[2018-12-27] MEDS ORDERED: POTASSIUM CHLORIDE 20 MEQ/PKT PACKET PO ONE (09:15)
[2018-12-27] MEDS: VIMPAT IV SCH ×2 (09:27→21:54)
[2018-12-27] MEDS: cefTRIAXone 1 GM in D5W 50 ML IV SCH (16:43)
[2018-12-27] MEDS: 0.45% NACL 1,000 ML IV SCH (18:31)
[2018-12-28] VITALS (28 sets, daily range): BP systolic 104–139
[2018-12-28 05:38] LABS: CALCIUM 7.6 mg/dL (8.4-11.0); CREATININE 0.35 mg/dL (0.55-1.30); HEMOGLOBIN 10.4 g/dL (14.0-18.0); MEAN CORPUSCULAR HEMOGLOBIN 32 pg (27-31); MEAN CORPUSCULAR HGB CONC 33 % (32-36); MEAN CORPUSCULAR VOLUME 99 fL (79.0-98.0); PLATELET COUNT (AUTO) 124 K/uL (130-430); POTASSIUM 3.7 mmol/L (3.5-5.1); RED BLOOD CELL COUNT(AUTO) 3.23 MIL/uL (4.2-6.2); RED CELL DISTRIBUTION WIDTH 15.1 % (9.0-15.0); WHITE BLOOD COUNT (AUTO) 5.3 K/uL (4.8-10.8)
[2018-12-28 06:04] LABS: ATYPICAL LYMPHOCYTES % 0 % (0-0); BAND % (MANUAL) 3 % (0-6); BASOPHILS % (MANUAL) 0 % (0-2); EOSINOPHILS % (MANUAL) 0 % (0-7); LYMPHOCYTES % (MANUAL) 20 % (20-46); METAMYELOCYTES % 2 % (0-0); MONOCYTES % (MANUAL) 8 % (0-11); MYELOCYTES % 1 % (0-0)
[2018-12-28] MEDS: VALPROIC ACID ORAL SYRUP 250 MG/5 ML UDC GT SCH ×3 (06:17→21:28)
[2018-12-28] MEDS: HYDROCORTISONE SOD SUCC 100 MG/2 ML VIAL IVP SCH ×3 (06:17→21:28)
[2018-12-28] MEDS: MINERAL OIL 30 ML UDC PO SCH ×2 (08:30→21:28)
[2018-12-28] MEDS: NS IV SCH ×4 (08:37→21:29)
[2018-12-28] MEDS: LEVETIRACETAM IV SCH ×2 (08:37→21:29)
[2018-12-28] MEDS: VIMPAT IV SCH ×2 (08:39→21:20)
[2018-12-28] MEDS ORDERED: FUROSEMIDE 20 MG/2 ML VIAL IVP ONE (14:00)
[2018-12-28] MEDS: 0.45% NACL 1,000 ML IV SCH (18:05)
[2018-12-28] MEDS ORDERED: POTASSIUM CHLORIDE 10 MEQ TAB.PRT.SR PO ONE (21:00)
[2018-12-28] MEDS: FUROSEMIDE 20 MG/2 ML VIAL IVP SCH (21:29)
[2018-12-29] VITALS (35 sets, daily range): BP systolic 73–153
[2018-12-29] MEDS: VALPROIC ACID ORAL SYRUP 250 MG/5 ML UDC GT SCH ×3 (05:51→21:35)
[2018-12-29] MEDS: HYDROCORTISONE SOD SUCC 100 MG/2 ML VIAL IVP SCH ×3 (05:51→21:36)
[2018-12-29 06:44] LABS: HEMATOCRIT 32.3 % (36-54); HEMOGLOBIN 10.8 g/dL (14.0-18.0); MEAN CORPUSCULAR HEMOGLOBIN 33 pg (27-31); MEAN CORPUSCULAR HGB CONC 33 % (32-36); MEAN CORPUSCULAR VOLUME 99 fL (79.0-98.0); PLATELET COUNT (AUTO) 113 K/uL (130-430); RED BLOOD CELL COUNT(AUTO) 3.25 MIL/uL (4.2-6.2); RED CELL DISTRIBUTION WIDTH 15.3 % (9.0-15.0); WHITE BLOOD COUNT (AUTO) 5.8 K/uL (4.8-10.8)
[2018-12-29 06:45] LABS: BASOPHILS % (AUTO) 0.5 % (0.0-2.0); CALCIUM 7.8 mg/dL (8.4-11.0); CREATININE 0.44 mg/dL (0.55-1.30); EOSINOPHILS % (AUTO) 0.1 % (0.0-4.0); LYMPHOCYTES % (AUTO) 19.3 % (20.5-51.5); MONOCYTES % (AUTO) 11.9 % (1.7-9.3); NEUTROPHILS # (AUTO) 3.9 K/uL (1.8-7.7); NEUTROPHILS % (AUTO) 68.2 % (40.0-70.0); POTASSIUM 3.8 mmol/L (3.5-5.1)
[2018-12-29 06:46] LABS: LYMPHOCYTES # (AUTO) 1.1 K/uL (1.0-5.5); MONOCYTES # (AUTO) 0.7 K/uL (0.0-1.0)
[2018-12-29 06:54] LABS: ALBUMIN 1.9 g/dL (3.4-4.8); TOTAL BILIRUBIN 0.3 mg/dL (0.0-1.0)
[2018-12-29] MEDS: FUROSEMIDE 20 MG/2 ML VIAL IVP SCH ×2 (09:00→21:28)
[2018-12-29] MEDS ORDERED: POTASSIUM CHLORIDE 10 MEQ TAB.PRT.SR PO SCH (09:00)
[2018-12-29] MEDS: MINERAL OIL 30 ML UDC PO SCH ×2 (09:00→21:27)
[2018-12-29] MEDS ORDERED: FUROSEMIDE 20 MG/2 ML VIAL IVP SCH (09:00)
[2018-12-29] MEDS: VIMPAT IV SCH ×2 (09:32→21:00)
[2018-12-29] MEDS: NS IV SCH ×2 (09:32→21:00)
[2018-12-29] MEDS: levETIRAcetam 1,500 MG in NS 100 ML IV SCH ×2 (10:39→21:28)
[2018-12-29] MEDS ORDERED: ENOXAPARIN SODIUM 40 MG/0.4 ML SYRINGE SUBCUT ONE (14:15)
[2018-12-29] MEDS ORDERED: ENOXAPARIN SODIUM 40 MG/0.4 ML SYRINGE SUBCUT SCH (14:15)
[2018-12-29] MEDS: LORazepam 2 MG/ML VIAL IVP PRN (16:55)
[2018-12-30] MEDS ORDERED: ENOXAPARIN SODIUM 40 MG/0.4 ML SYRINGE SUBCUT SCH (09:00)
== END 2018-12-29 22:12 | DRG 870 ==
LOC: SED 20:29 → SIC 23:15
PROVIDERS: ADMIT Internal Medicine; ATTEND Internal Medicine
PROC: 5A1955Z Respiratory Ventilation, Greater than 96 Consecutive Hours (ICD-10-PCS; principal; 2018-12-17)
PROC: 0BH17EZ Insertion of Endotracheal Airway into Trachea, Via Natural or Artificial Opening (ICD-10-PCS; 2018-12-17)
PROC: 02HV33Z Insertion of Infusion Device into Superior Vena Cava, Percutaneous Approach (ICD-10-PCS; 2018-12-17)
PROC: B548ZZA Ultrasonography of Superior Vena Cava, Guidance (ICD-10-PCS; 2018-12-17)
DX: A41.9 Sepsis, unspecified organism (principal); J69.0 Pneumonitis due to inhalation of food and vomit; I21.4 Non-ST elevation (NSTEMI) myocardial infarction; K85.90 Acute pancreatitis without necrosis or infection, unspecified; J96.00 Acute respiratory failure, unspecified whether with hypoxia or hypercapnia; R65.21 Severe sepsis with septic shock; J15.6 Pneumonia due to other Gram-negative bacteria; I47.1 Supraventricular tachycardia; G93.40 Encephalopathy, unspecified; E27.40 Unspecified adrenocortical insufficiency; Z99.11 Dependence on respirator [ventilator] status; G40.901 Epilepsy, unspecified, not intractable, with status epilepticus; K21.9 Gastro-esophageal reflux disease without esophagitis; B96.4 Proteus (mirabilis) (morganii) as the cause of diseases classified elsewhere; D69.6 Thrombocytopenia, unspecified; E78.5 Hyperlipidemia, unspecified; E87.6 Hypokalemia; J45.909 Unspecified asthma, uncomplicated; R73.9 Hyperglycemia, unspecified; E87.70 Fluid overload, unspecified; R74.0 Nonspecific elevation of levels of transaminase and lactic acid dehydrogenase [LDH]; Z51.5 Encounter for palliative care; N19 Unspecified kidney failure; Z79.82 Long term (current) use of aspirin; Z85.028 Personal history of other malignant neoplasm of stomach; Z86.718 Personal history of other venous thrombosis and embolism; Z86.73 Personal history of transient ischemic attack (TIA), and cerebral infarction without residual deficits; Z98.2 Presence of cerebrospinal fluid drainage device; Z79.899 Other long term (current) drug therapy; Z88.8 Allergy status to other drugs, medicaments and biological substances
CPT/HCPCS: 36415; 36600; 70450-TC; 71045; 76700-TC; 80048; 80053; 80076; 80156-TC; 80164-TC; 80202-TC; 80307; 81000-TC; 82140-TC; 82542; 82550-TC; 82803-TC; 82977-TC; 83605; 83690-TC; 83880; 84484; 85007; 85025; 85027; 85610-TC; 86704; 86706; 86803; 87040-TC; 87045-TC; 87046; 87070-TC; 87081; 87086; 87186-TC; 87205-TC; 87340; 87536; 89055; 93005; 94002; 94003; 94640; 94760; 95816; 96361; 96365; 96366; 96375; 96376; 99291; C1751; G0480; G0481; G0482; J0282; J0696; J1650; J1720; J1940; J1953; J2060; J2270; J2543; J2704; J3370; J3480; J3490; J7030; J7040; J7050; J7060; J7613